=== PATIENT | male | born 1940 | race Caucasian/White ===

== ENCOUNTER 2016-06-29 17:21 | Emergency (ER) | payer OTHER ==
[2016-06-29 17:38] VITALS: BP 158/78; PULSE 67; TEMP 98.1; BMI 28.5
--- NOTE | 2016-06-29 17:49 | PDOC ---
History of Present Illness - General Chief Complaint: Ear Problem Stated Complaint: left ear pain,headache Time Seen by Provider: 06/29/16 17:30 - History of Present Illness Initial Comments: 06/29/16 17:49 65-year-old male with a negative past medical history He is on no medications Patient is complaining of a left earache that started 3-4 days ago He states it was relieved with Advil He denies any pain today He states that he was seen by ENT 2 months ago for similar problem He denies any right ear pain He denies any sore throat, fevers chills or cough He denies any URI symptoms He denies any other complaints Past History - Past Medical History Allergies/Adverse Reactions: Allergies Allergy/AdvReac Type Severity Reaction Status Date / Time No Known Allergies Allergy Verified 06/29/16 17:23 Home Medications: Ambulatory Orders Ibuprofen [Advil -] 400 mg PO PRN PRN 06/29/16 Ibuprofen/Diphenhydramine Cit [Advil Pm Caplet] 1 each PO HS 06/29/16 Neomycin/Polymyxn/Hc [Cortisporin Otic Suspenstion -] 4 drop TID #1 bottle Other medical history: denies - Psycho/Social/Smoking Cessation Hx Anxiety: No Suicidal Ideation: No Smoking History: Former smoker Have you smoked in the past 12 months: No Information on smoking cessation initiated: No Hx Alcohol Use: No Drug/Substance Use Hx: No Substance Use Type: None *Physical Exam - Vital Signs Last Vital Signs Temp Pulse Resp BP Pulse Ox 98.1 F 67 20 158/78 98 06/29/16 17:22 06/29/16 17:22 06/29/16 17:22 06/29/16 17:22 06/29/16 17:22 - Physical Exam Comments: 06/29/16 17:51 Physical exam Last Vital Signs Temp Pulse Resp BP Pulse Ox 98.1 F 67 20 158/78 98 06/29/16 17:22 06/29/16 17:22 06/29/16 17:22 06/29/16 17:22 06/29/16 17:22 Patient is alert and ambulatory and answering questions Head is normocephalic and atraumatic Right TM is benign, and right external ear is benign There is some mild irritation of the left ear canal, but the left TM is normal, and the left external ear is benign Mouth and oropharynx is benign Neck is supple, and there is no lymph adenopathy Nares is clear Lungs clear bilaterally Heart regular rate and rhythm Grossly nonfocal neurologic exam Medical Decision Making - Medical Decision Making 06/29/16 17:53 Possible very mild early otitis externa in the left ear Will treat with Cortisporin otic, and have patient follow-up with ENT *DC/Admit/Observation/Transfer Diagnosis at time of Disposition: Otitis externa - Discharge Dispostion Disposition: HOME Condition at time of disposition: Good - Patient Instructions Additional Instructions: Cortisporin [id number] drops in left ear 3 times a day Follow-up with ENT-please call tomorrow for an appointment Followup with your primary care physician in 24-48 hours Return immediately if you worsen in any way Take your medications as directed
[2016-06-29] MEDS ORDERED: NEOMYCIN/POLYMYXN/HC OTIC SUSPENSION 10 ML BOTTLE AS ONE (17:53)
[2016-06-29] MEDS ORDERED: NEOMYCIN/POLYMYXN/HC OTIC SUSPENSION 10 ML BOTTLE ONE (18:06)
== END 2016-06-29 18:12 | disposition home or self-care (01) ==
LOC: FER 17:21
DX: H60.92 Unspecified otitis externa, left ear (principal); Z87.891 Personal history of nicotine dependence
CPT/HCPCS: 99282-25